=== PATIENT | female | born 1965 | race Native Hawaiian/Other Pacific Islander ===

== ENCOUNTER 2017-02-16 12:02 | Emergency (ER) | payer OTHER ==
[2017-02-16 12:11] VITALS: BMI 23.0
[2017-02-16 12:13] VITALS: BP 147/92; PULSE 83; RESP 19; TEMP 98.1; O2SAT 98
--- NOTE | 2017-02-16 12:33 | ED PDOC ---
Upper Extremity Pain/Injury Time Seen by Provider: 02/16/17 12:19 Chief Complaint (Nursing): Upper Extremity Problem/Injury Chief Complaint (Provider): Right arm pain History Per: Patient History/Exam Limitations: no limitations Onset/Duration Of Symptoms: Persistent Current Symptoms Are (Timing): Still Present Quality: Tightness, "Pain" Severity: Moderate Exacerbating Factor(s): Strenuous Use Of Affected Area, Movement Additional History Per: Patient Additional Complaint(s): The pt is a 51yo female with PMHx of high cholesterol, presents to the ED for evaluation of right shoulder pain described as tightness in her muyscles. Pt reports the pain has been present for a long time and states she has visited a neurologist as well as physical therapy with some relief of her symptoms. Pt reports she was informed the pain is likely muscular and has been taking Tylenol for the symptom with little relief. She reports presenting to the ED today because she is unable to move her arm. She denies nay trauma or injury to the area. Pt denies any other medical complaints. Past Medical History Reviewed: Historical Data, Nursing Documentation, Vital Signs Vital Signs: Last Vital Signs Temp 98.1 F 02/16/17 12:11 Pulse 83 02/16/17 12:11 Resp 19 02/16/17 12:11 BP 147/92 H 02/16/17 12:11 Pulse Ox 98 02/16/17 12:11 - Medical History PMH: HTN, Hypercholesterolemia, Mitral Valve Prolapse Denies: Chronic Kidney Disease - Surgical History Surgical History: No Surg Hx - Family History Family History: States: Unknown Family Hx - Home Medications Home Medications: Ambulatory Orders Medication Instructions Recorded Aspirin [Aspirin Chewable] 81 mg PO DAILY 10/20/16 Rosuvastatin Calcium [Crestor] 10 mg PO DAILY 10/20/16 Cyclobenzaprine [Cyclobenzaprine 10 mg PO Q8H PRN #12 tab 02/16/17 HCl] predniSONE [predniSONE Tab] 20 mg PO DAILY #12 tab 02/16/17 - Allergies Allergies/Adverse Reactions: Allergies Allergy/AdvReac Type Severity Reaction Status Date / Time ibuprofen [From Motrin] Allergy RASH Verified 10/20/16 07:45 Review of Systems ROS Statement: Except As Marked, All Systems Reviewed And Found Negative Musculoskeletal: Positive for: Shoulder Pain (right) Physical Exam - Reviewed Nursing Documentation Reviewed: Yes Vital Signs Reviewed: Yes - Physical Exam Appears: Positive for: Well, Non-toxic, No Acute Distress Skin: Positive for: Normal Color Neck: Positive for: Normal, Supple Cardiovascular/Chest: Positive for: Regular Rate, Rhythm Respiratory: Positive for: Normal Breath Sounds. Negative for: Respiratory Distress Extremity: Positive for: Tenderness (right shoulder). Negative for: Normal ROM (decreased ROM due to pain), Deformity, Swelling Neurologic/Psych: Positive for: Alert, Oriented - ECG O2 Sat by Pulse Oximetry: 98 (RA) Pulse Ox Interpretation: Normal Medical Decision Making Medical Decision Making: Time: 1225 Impression: Right shoulder pain Plan: -- XR right shoulder -- Flexeril 10 mg -- Solumedrol 125 mg IM Pt requests information for Dr. Weiss. Scribe Attestation: Documented by Danay Hernández, acting as a scribe for JADE Morrell Provider Attestation: All medical record entries made by the Scribe were at my direction and personally dictated by me. I have reviewed the chart and agree that the record accurately reflects my personal performance of the history, physical exam, medical decision making, and the department course for this patient. I have also personally directed, reviewed, and agree with the discharge instructions and disposition. Disposition - Clinical Impression Clinical Impression: Tendonitis, calcifying, shoulder - Patient ED Disposition Is Patient to be Admitted: No Counseled Patient/Family Regarding: Diagnosis, Need For Followup, Rx Given - Disposition Referrals: Carl Engel III, MD [Staff Provider] - Marika Weiss MD [Staff Provider] - Disposition: Routine/Home Disposition Time: 13:02 Condition: GOOD Prescriptions: Cyclobenzaprine [Cyclobenzaprine HCl] 10 mg PO Q8H PRN #12 tab PRN Reason: Muscle Spasm predniSONE [predniSONE Tab] 20 mg PO DAILY #12 tab Instructions: Calcific Tendinitis (ED) Forms: [facility] ED School/Work Excuse
--- NOTE | 2017-02-16 13:05 | RAD ---
PROCEDURE: Radiographs of the Right Shoulder HISTORY: pain, muscle spasm COMPARISON: No prior. FINDINGS: BONES: Normal. No fracture. JOINTS: Normal. Glenohumeral and acromioclavicular joints preserved. No osteoarthritis. SOFT TISSUES: There is globular calcifications superior to the greater tuberosity consistent with calcific tendinitis. OTHER FINDINGS: None. IMPRESSION: Calcific tendinitis. No additional abnormality.
== END 2017-02-16 13:24 | disposition home or self-care (01) ==
LOC: H.ER 12:02
DX: M25.511 Pain in right shoulder (principal); E78.00 Pure hypercholesterolemia, unspecified; I10 Essential (primary) hypertension; I34.1 Nonrheumatic mitral (valve) prolapse; M77.9 Enthesopathy, unspecified; Z79.82 Long term (current) use of aspirin